=== PATIENT | female | born 1980 | race African-American/Black ===

== ENCOUNTER 2023-07-07 12:24 | Emergency (ER) | payer OTHER ==
[2023-07-07] MEDS ORDERED: Aspirin Chewable 81 MG TAB ONE (13:16)
[2023-07-07 13:25] LABS: #Eosinphils 0.3 10x3/uL (0.0-0.5); #Monocytes 0.8 10x3/uL (0.0-1.1); #Neutrophils 7.1 10x3/uL (1.5-8.4); %Basophils 0.2 % (0.0-2.0); %Eosinophils 2.5 % (0.0-6.0); %Lymphocytes 23.2 % (18.0-47.0); %Monocytes 7.3 % (0.0-10.0); %Neutrophils 66.4 % (40.0-75.0); Hematocrit 35.6 % (34.9-44.5); Hemoglobin 11.6 g/dL (12.0-15.5); Mean Corpuscular HGB CONC 32.6 g/dL (32.0-36.0); Mean Corpuscular Hemoglobin 27.5 pg (27.0-33.0); Mean Corpuscular Volume 84.4 fl (81.6-98.3); Mean Platelet Volume 9.9 fl (7.4-10.4); Platelet Count 328 10x3/uL (150-450); RBC Distribution Width 14.1 % (11.5-14.5); Red Blood Cell (RBC) Count 4.22 10x6/uL (3.90-5.03); White Blood Cell (WBC) Count 10.7 10x3/uL (3.5-10.5)
[2023-07-07 13:36] LABS: ALT (SGPT) 15 U/L (8-55); AST (SGOT) 12 U/L (5-34); Albumin 3.9 g/dL (3.5-5.0); Alkaline Phosphatase 55 U/L (40-110); Anion Gap 11 mmol/L (10-20); BUN (Urea Nitrogen) 9 mg/dL (7.0-18.7); Bilirubin, Total 0.2 mg/dL (0.2-1.2); Calc. Creatinine Clearance 0 mL/min (70-130); Calcium 9.1 mg/dL (7.8-10.44); Carbon Dioxide 29 mmol/L (22-29); Chloride 99 mmol/L (98-107); Estimated GFR 92; Globulin 3.2 g/dL (2.4-3.5); Glucose 107 mg/dL (70-105); Potassium 3.3 mmol/L (3.5-5.1); Protein, Total 7.1 g/dL (6.0-8.3); Sodium 136 mmol/L (136-145)
[2023-07-07 13:44] LABS: Troponin I Less than 0.010 ng/mL (< 0.028)
[2023-07-07 14:18] LABS: Bilirubin Neg (Negative); Blood, Urine 10 (Negative); Glucose, Urine (Dipstick) 50 mg/dL (Negative); Ketone, Urine Negative (Negative); Leukocyte 25 (Negative); Nitrite Negative (Negative); Protein, Urine (Dipstick) 15 mg/dl (Neg-Trace); Urobilinogen Normal mg/dL (Less than 2)
[2023-07-07 14:20] LABS: Clarity Hazy (Clear); Pregnancy Test - Urine (BHCG) Negative (Negative); Pregu Control Bar Appear? YES (CONTROL BAR)
[2023-07-07 14:21] LABS: Pregu Control Background? CLEAR/WHITE (CLR/WHITE)
[2023-07-07 14:26] LABS: Amphetamine Not Detected (NotDetected); Barbiturates Screen Not Detected (NotDetected); Benzodiazepine Screen Detected (NotDetected); Cocaine Metabolite Screen Detected (NotDetected); Methadone Not Detected (NotDetected); Methamphetamine Not Detected (NotDetected); Opiate Screen Not Detected (NotDetected); Oxycodone Screen Not Detected (NotDetected); Phencyclidine (PCP) Detected (NotDetected); THC/Cannabinoid Screen Detected (NotDetected); Tricyclic Screen Not Detected (NotDetected)
[2023-07-07 14:48] LABS: Bacteria/HPF Rare-Few HPF (None Seen); CAUTI Indications for Culture Spinal Cord Injury; RBC/HPF 0-3 HPF (0-3)
[2023-07-07 14:49] LABS: Mucous/LPF 1+ LPF (<2+)
[2023-07-07 14:50] LABS: Urine Culture Reflex No No
[2023-07-07 15:13] LABS: Alcohol Less than 10.0 mg/dL (Less than 10); CK (CPK) 102 U/L (29-168)
== END 2023-07-07 22:11 ==
LOC: CSHERS 12:24
DX: R45.851 Suicidal ideations (principal); E11.9 Type 2 diabetes mellitus without complications; I10 Essential (primary) hypertension; F17.210 Nicotine dependence, cigarettes, uncomplicated
CPT/HCPCS: 36415; 71045; 80053; 80306; 80307; 81001; 81025; 82550; 84443; 84484; 85025

== ENCOUNTER 2023-07-21 18:06 | Emergency (ER) | payer OTHER ==
[2023-07-21] MEDS ORDERED: methylPREDNISolone Sod Succ/PF 125 MG/2 ML VIAL ONE (18:18)
[2023-07-21] MEDS ORDERED: diphenhydrAMINE 50 MG/ML VIAL ONE (18:18)
[2023-07-21] MEDS ORDERED: Famotidine/PF 20 mg/2ml Vial ONE (18:19)
== END 2023-07-21 19:09 | disposition home or self-care (01) ==
LOC: CSHERS 18:06
DX: T78.1XXA Other adverse food reactions, not elsewhere classified, initial encounter (principal); E11.9 Type 2 diabetes mellitus without complications; I10 Essential (primary) hypertension; F17.210 Nicotine dependence, cigarettes, uncomplicated; Z79.84 Long term (current) use of oral hypoglycemic drugs; Z79.899 Other long term (current) drug therapy
CPT/HCPCS: 96374; 96375; J1200; J2930; S0028